=== PATIENT | male | born 1945 | race Caucasian/White ===

== ENCOUNTER → 2016-06-22 | Outpatient (CLI) | payer OTHER, MEDICARE ==
[~2016-06-22] MED LIST: AMLO5TAB2 PO; ASPI325T4 PO; ASPI81TA2 PO; ATOR40TA59 PO; CELE200C PO; CLOP75TA27 PO; FERR-26 PO; HYDR50TA6 PO; LOSA100T6 PO; OXYC-244 PO
[2016-06-22 09:05] LABS: BASO % 1 % (0-3); EOS % 2 % (0-3); HEMATOCRIT 44.2 % (39.0-53.0); HEMOGLOBIN 15.3 g/dL (13.0-17.5); LYMPH # 1.7 x10^3/uL (1.0-4.8); LYMPH % 28 % (24-48); MEAN CORPUSCULAR HEMOGLOBIN 32 pg (25-35); MEAN CORPUSCULAR HGB CONC 35 g/dL (31-37); MEAN CORPUSCULAR VOLUME 93 fL (79-100); MONO % 11 % (0-9); NEUT % 58 % (31-73); PLATELET COUNT 244 x10^3/uL (140-400); RED BLOOD COUNT 4.74 x10^6/uL (4.30-5.70); RED CELL DISTRIBUTION WIDTH 13.3 % (11.5-14.5); WHITE BLOOD COUNT 5.8 x10^3/uL (4.0-11.0)
[2016-06-22 09:07] LABS: BILIRUBIN,URINE NEGATIVE (NEG); GLUCOSE,URINE NEGATIVE (NEG); NITRITE,URINE NEGATIVE (NEG); PROTEIN,URINE NEGATIVE (NEG-TRACE)
[2016-06-22 09:14] LABS: INR 1.1 (0.8-1.1); PROTHROMBIN TIME PATIENT 13.4 SEC (11.7-14.0)
[2016-06-22 09:17] LABS: BACTERIA,URINE FEW /HPF (0-FEW); RBC,URINE 0 /HPF (0-2); SQUAMOUS EPITHELIAL CELL,UR FEW /LPF
[2016-06-22 09:21] LABS: ALBUMIN 3.8 g/dL (3.4-5.0); CALCIUM 9.2 mg/dL (8.5-10.1); CREATININE 0.9 mg/dL (0.7-1.3); GFR 82.9; POTASSIUM 4.3 mmol/L (3.5-5.1)
--- NOTE | 2016-06-22 11:48 | EKG ---
[facility] [address] [place] [address] Test Date: 2016-06-22 Test Time: 11:42:47 Pat Name: BRIGITTE Department: Room: Gender: Training And Development Head: : 1945 Requested By: DARÍO AMR Order Number: [id number] Reading MD: Raheem Garnett Measurements Intervals [place] Rate: 56 P: 25 ND: 192 QRS: 11 QRSD: 80 T: 39 QT: 392 QTc: 381 Interpretive Statements SINUS RHYTHM Electronically Signed On 06-23-2016 10:45:01 CDT by Raheem Garnett
--- NOTE | 2016-06-22 15:21 | RAD ---
EXAM: CHEST 2 VIEWS History: Preop knee replacement COMPARISON: 06/29/2009 TECHNIQUE: PA and lateral chest radiographs FINDINGS: The cardiomediastinal silhouette is within normal limits. The lungs are clear bilaterally. The costophrenic sulci are clear and well demarcated bilaterally. IMPRESSION: No radiographic evidence of an acute cardiopulmonary abnormality.
== END | disposition home or self-care (01) ==
LOC: SURGPAT 12:23
PROVIDERS: ATTEND Orthopaedic Surgery
DX: Z01.818 Encounter for other preprocedural examination (principal); I10 Essential (primary) hypertension
CPT/HCPCS: 36415; 71020; 80048; 81001; 82040; 85027; 85610; 85651; 85730; 87641; 93005

== ENCOUNTER → 2016-06-24 | Outpatient (CLI) | payer OTHER, MEDICARE ==
[~2016-06-24] MED LIST changes: -ASPI325T4 PO; -OXYC-244 PO
--- NOTE | 2016-06-24 17:41 | KCIC ---
PROCEDURE Right lower extremity venous duplex study 06/24/2016 HISTORY Right leg swelling. Palpable lump in medial right calf. TECHNIQUE Using a combination of real-time ultrasound imaging and color flow and pulse Doppler imaging techniques along with graded compression and augmentation, duplex evaluation of the major deep venous structures of the right lower extremity was performed. Multiple images were obtained. FINDINGS There is no sonographic evidence of deep venous thrombosis involving the visualized deep venous structures of the right lower extremity. A 3.1 centimeter prominent likely reactive lymph node is seen within the right inguinal region. Edema is seen within soft tissues of the medial right calf. A varicose vein in is seen in this region which is patent. No superficial venous thrombosis is noted. IMPRESSION There is no sonographic evidence of deep venous thrombosis involving visualized deep venous structures of the right lower extremity. A varicose vein is seen within the medial distal right calf which is patent. This appears to correspond to the patient's palpable abnormality. Electronically signed by: Hermann Hamilton MD (June 24, 2016 17:39:53)
== END | disposition home or self-care (01) ==
LOC: KCIC US 15:19
PROVIDERS: ATTEND Orthopaedic Surgery
DX: I82.4Z1 Acute embolism and thrombosis of unspecified deep veins of right distal lower extremity (principal); R22.41 Localized swelling, mass and lump, right lower limb
CPT/HCPCS: 93971

== ENCOUNTER 2016-07-14 05:44 | Inpatient (IN) | payer OTHER, MEDICARE ==
--- NOTE | 2016-07-13 09:35 | PDOC1 ---
History and Physical Date of Admission Date of Admission DATE: 07/14/16 Identification/Chief Complaint Chief Complaint right knee osteoarthritis pain Problems: Source Source: Chart review History of Present Illness History of Present Illness is a 71 year old male patient with right knee pain. Initially, he was scheduled for a right total knee replacement on 08/20/2015 but was cancelled since he suffered a stroke on 06/23/2015. He is here today to discuss having the surgery rescheduled but he has some questions about when he should schedule. He has some family functions that he would like to attend in June but he would like to schedule as soon as possible since he is having his sleep disrupted every evening due to pain with the right leg. He states he has been taking ibuprofen at night for the last several months to help with his symptoms during sleep. He was treated at for the stroke. He was told he has clotted off cerebral arteries posteriorly, to the cerebellum. He is on Plavix and aspirin only for treatment. He no longer sees any specialists, and Bernard Burrell his primary care is to continue the Plavix and aspirin. He occasionally gets some dizziness symptoms secondary to the stroke, and has a little bit of generalized fatigue/weakness after the stroke but denies ever having a fall. He has also lost 63 pounds in an effort to improve his health. Past Medical History Cardiovascular: HTN GI: GERD Past Surgical History Past Surgical History: Total knee replacement (left - 2007), Other (right shoulder scope with RCR and BT - 2012) Family History Family History: Cancer, Heart Disease Social History Smoke: No (previous use of chewing tobacco) ALCOHOL: occassional Drugs: None Current Medications Current Medications Active Scripts Active Reported Ferrous Sulfate 325 Mg Tablet 325 Mg PO DAILY Celebrex (Celecoxib) 200 Mg Capsule 1 Cap PO DAILY Plavix (Clopidogrel Bisulfate) 75 Mg Tablet 75 Mg PO DAILY Amlodipine Besylate 5 Mg Tablet 5 Mg PO DAILY Atorvastatin Calcium 40 Mg Tablet 40 Mg PO DAILY Losartan Potassium 100 Mg Tablet 100 Mg PO DAILY Hydrochlorothiazide Tablet (Hydrochlorothiazide) 50 Mg Tablet 12.5 Mg PO DAILY Aspirin 81 Mg Tab.chew 81 Mg PO DAILY Allergies Allergies: Coded Allergies: cetirizine (Verified Allergy, Intermediate, 06/22/16) admitted to hospital w/ abnormal labs-made him very sick cephalexin (Verified Adverse Reaction, Intermediate, Nausea and Vomiting, 06/22/16) Physical Exam General: Alert, Oriented X3, Cooperative, No acute distress HEENT: Atraumatic, EOMI Lungs: Normal air movement Heart: RRR Abdomen: Soft Extremities: No clubbing, No cyanosis, Normal pulses, Other (The right knee shows his mildly antalgic gait. There is varus alignment. No masses. No detectable effusion. Tenderness on the joint lines. Range of motion is 5-115 degrees. There is crepitus with range of motion, and pain at the extremes of motion. The knee is stable to varus and valgus stress without subluxation or laxity. Muscle strength is normal (5/5) for quadriceps and hamstrings, and muscle tone is normal. The skin is normal with no scars, rashes, lesions or ulcers. Light touch sensation is intact. No edema and no varicosities. Dorsalis pedis pulse is intact and capillary refill is normal. The left knee shows normal alignment, no masses and no effusion. No tenderness to palpation. Range of motion is 0-120 degrees, with typical total knee crepitus but no pain at the extremes of motion. The knee is stable to varus and valgus stress without subluxation or laxity. Muscle strength is normal (5/5) for quadriceps and hamstrings, and muscle tone is normal. The extensor mechanism is intact. The skin shows a well-healed midline scar from total knee arthroplasty. No drainage lesions or ulcers. Light touch sensation is intact. No edema and no varicosities. Dorsalis pedis pulse is intact and capillary refill is normal.) Skin: No rashes, No breakdown, No significant lesion Neuro: Normal speech, Sensation intact Psych/Mental Status: Mental status NL, Mood NL VTE Prophylaxis Ordered VTE Prophylaxis Devices: Yes VTE Pharmacological Prophylaxi: Yes Assessment/Plan Assessment/Plan Right knee osteoarthritis The patient and Dr. Engel talked about the risks and benefits of proceeding with total knee arthroplasty. He is slightly higher risk for complications such as falls, and slightly higher risk for complications due to obesity. He is down to 294 pounds, and when I last saw him he was 352 pounds. I encouraged him to continue weight loss. We will have him do some preoperative physical therapy for strengthening and balance exercises to help prevent the risk of falls perioperatively. His prior stroke also put some slightly higher risk, and we would like to hold his Plavix and aspirin for 24-48 hours if that is okay with Dr. Burrell. I would prefer to use tranexamic acid, but we can discuss those risks with anesthesia and may want to hold that for his surgery. We discussed the potential risks of infection, neurovascular injury, bleeding, blood clots, need for revision surgery, or other potential surgical or anesthetic complications. We can schedule at a mutually convenient date, tentatively July 14. HERO LI Jul 13, 2016 09:35
[~2016-07-14] VITALS: Ht 177.8 cm; Wt 134.7 kg
[2016-07-14] VITALS (9 sets, daily range): BP systolic 99–118; BP diastolic 57–70
[~2016-07-14 05:44] MED LIST changes: +ASPI-630 PO; -ASPI81TA2 PO; -CLOP75TA27 PO; +CLOP75TA57 PO
[2016-07-14] MEDS ORDERED: CELECOXIB 200 MG CAPSULE. PO PRN (06:00)
[2016-07-14] MEDS ORDERED: HYDROcodone/APAP 7.5/325MG 1 TAB TABLET PO PRN ×2 (06:00→10:15)
[2016-07-14] MEDS ORDERED: MORPHINE SULFATE 5 MG, KETOROLAC TROMETHAMINE 30 MG, ROPIVacaine 0.5% PF 60 ML, EPINEPH... INT ART ONE ×5 (06:00)
[2016-07-14] MEDS ORDERED: CLINDAMYCIN 900MG PREMIX 50 ML IV PRN (06:00)
[2016-07-14] MEDS ORDERED: VANCOMYCIN 1 GM VIAL. ONE (06:32)
[2016-07-14] MEDS ORDERED: TOBRAMYCIN POWDER 1.2 GM VIAL. ONE (06:32)
[2016-07-14] MEDS ORDERED: IV RINGERS,LACTATED 1000ML 1,000 ML IV SCH (07:00)
[2016-07-14] MEDS ORDERED: ONDANSETRON PF 4 MG/2 ML VIAL. IV PRN (07:00)
[2016-07-14] MEDS ORDERED: LIDOCAINE 1% 1 ML SYRINGE. ID PRN (07:00)
[2016-07-14] MEDS ORDERED: PROCHLORPERAZINE 10 MG/2 ML VIAL. IV PRN ×2 (07:00→10:15)
[2016-07-14] MEDS ORDERED: fentaNYL PF VIAL 100 MCG/2 ML VIAL IV PRN ×3 (07:00→10:15)
[2016-07-14] MEDS ORDERED: fentaNYL PF VIAL 250 MCG/5 ML VIAL ONE (07:04)
[2016-07-14] MEDS ORDERED: ePHEDrine PF IN SALINE 50 MG/5 ML DISP.SYRIN IV ONE (07:29)
[2016-07-14] MEDS ORDERED: SUCCINYLCHOLINE 200 MG/10 ML VIAL. ONE (07:59)
[2016-07-14] MEDS ORDERED: GLYCOPYRROLATE 1 MG/5 ML VIAL. ONE (08:00)
[2016-07-14] MEDS ORDERED: LIDOCAINE 2% PF Vial for OR 5 ML VIAL. ONE (08:00)
[2016-07-14] MEDS ORDERED: PROPOFOL 20 ML IV ONE (08:00)
[2016-07-14] MEDS ORDERED: TRANEXAMIC ACID 1,000 MG in IV NS 50ML -- 1ST BAG INJ ONE (08:00)
[2016-07-14] MEDS ORDERED: ONDANSETRON PF 4 MG/2 ML VIAL. ONE (08:01)
[2016-07-14] MEDS ORDERED: DEXAMETHASONE SOD PHOS 20 MG/5 ML VIAL. ONE (08:01)
[2016-07-14] MEDS ORDERED: PHENYLEPHRINE 10 MG/ML VIAL. ONE (08:38)
[2016-07-14] MEDS ORDERED: TRANEXAMIC ACID 1,000 MG in IV NS 50ML -- 2ND BAG INJ ONE (09:00)
[2016-07-14] MEDS ORDERED: SEVOFLURANE > 120 MINUTES. IH ONE (09:34)
--- NOTE | 2016-07-14 09:45 | PDOC4 ---
Operative Note Operative Note Date of Procedure: July 14, 2016 Pre-Op Diagnosis: Osteoarthritis right knee Post-Op Diagnosis: Osteoarthritis right knee Procedure: right total knee arthroplasty Surgeon: Darío Engel MD Dipper Machine Operator: Valarie Gottlieb PA-C Anesthesia: General EBL: 200 mL Specimens Obtained: right knee bone and soft tissue Complications: none Implant Company: [employer] Drains: Hemovac plus pain catheter Tourniquet time: 67 Minutes Tourniquet Pressure: 350 mm Hg Indications for Procedure: Arthritis pain unrelieved by nonoperative management. Findings: Severe osteoarthritis with bone on bone contact medially and at the patellofemoral joint Implants used: Size 5 right bicruciate stabilized Journey II BCS cobalt chrome femoral component, size 6 right Journey nonporous tibial baseplate, size 5-6 21 mm right Journey II BCS XLPE constrained articular insert, 38 mm oval Tiara II resurfacing patellar component Procedure in Detail: The patient was identified in the preoperative holding area, and the correct right extremity was marked by me. The patient was taken to the operating room where the patient was anesthetized by the Department of Anesthesia. Preoperative antibiotics were given intravenously. No tranexamic acid was given prior to surgery. A "time-out" procedure was performed. The patient was positioned supine on the operative table with a tourniquet on the upper thigh. The limb was thoroughly prepped and draped in sterile fashion. An impervious stockinet and adhesive drape were used such that the skin was entirely covered. An Catalan leg lara was used. The operating team wore personal exhaust-ventilated hoods. The tourniquet was inflated to 350 mm Hg. A midline skin incision was made with a scalpel using the patella and tibial tubercle as landmarks. Electrocautery was used for hemostasis. My learning support assistant used rake retractors. A medial parapatellar arthrotomy incision was used with extension into the distal quadriceps tendon. The patella was retracted laterally and Hohmann retractors were now used by my learning support assistant. Excess synovium, the menisci, and the cruciate ligaments were resected sharply. The patella was assessed and excess synovium and osteophytes around the patellar articulation were removed. The patella was measured with a caliper, cut freehand with a saw using caliper measurements, sized, and then drilled for an oval three-pegged patella component. Periarticular injection was used in the suprapatellar pouch and distal quadriceps muscle. Whitesides's line was assessed on the femur. An intra-medullary 5 degree cutting guide was pinned to the femur, and a distal femoral cut was made with an oscillating saw. An additional 4 mm resection was used due to the deep femoral sulcus, and deficient femoral condyle.My learning support assistant held Hohmann retractors and an [employer] retractor to protect the medial and lateral collateral ligaments, the patellar tendon, the skin and the other soft tissues. An anterior referencing guide was applied with external rotation of 3 to match Whitesides line. A 5-in-1 Journey II cutting guide was then applied and pinned to the femur. The posterior, anterior, and all chamfer cuts were made with the oscillating saw. An extramedullary guide was pinned to the tibia and rotational alignment and the planned resection thickness assessed. An external alignment stephane was used to verify the planned cut in the varus-valgus plane and regarding posterior slope referencing the tibial tubercle, the tibial shaft, the ankle joint, and the second metatarsal. The upper tibia was cut made with an oscillating saw. My learning support assistant held Hohmann retractors and a posterior cruciate ligament retractor to protect the medial and lateral collateral ligaments, the patellar tendon, the skin, the peroneal nerve and the other soft tissues. The upper tibia was sized with a trial baseplate. The posterior compartment was cleared of osteophytes and loose bodies, and posterior capsule released. [place]-articular injection was used in the posterior compartment. The box cut for a posterior stabilized component was made. A preliminary reduction was performed with a trial femur, trial tibial baseplate and trial polyethylene. Soft-tissue balancing was now performed, and extension and rotation of the alignments was checked using a guide stephane in the tibial trial and a guide pin in the femur. A medial release was required, using a 10 blade scalpel, and a [place] elevator to elevate the medial structures from the upper medial tibia. The stability was assessed using different thicknesses of tibial articular surface to find satisfactory stability and good range of motion. The rotation of the tibial component was marked on the upper tibia. Final trial reduction was now performed verifying patella tracking and tibiofemoral stability and alignment. The tibia preparation was completed with a drill, saw, and fin punch at the previously noted rotation. The final implants were verified and opened. Outer gloves were changed by the operating team. The bone cuts were washed thoroughly with the Nehemias InterPulse device and dried. Two packages of Palacos bone cement were mixed in powdered form with 1 gm of Vancomycin and 1.2 g tobramycin, then vacuum-mixed with the monomer, and placed into a cement gun. The cut surfaces of the bone were thoroughly dried with [place]el[place]-tip suction and with laparotomy sponges for cement interdigitation. The final components were cemented into place. The knee was kept at full extension while the cement hardened, and excess cement was removed. Tranexamic acid 1 g was given intravenously for additional intraoperative hemostasis. A final periarticular injection was used for pain relief. The tourniquet was released, and electrocautery was used for hemostasis. A final check of [id number] and stability was made, and the polyethylene implant final size was chosen. The polyethylene implant was secured to the tibial baseplate, and the knee was reduced a final time. Thorough irrigation was used. Hemovac and pain catheter were used.The arthrotomy was closed with interrupted [id number]-toiml #1 PDS suture. The arthrotomy incision was then run with #1 STRATAFIX Symmetric PDS Plus Knotless suture. The subcutaneous tissues were closed with #2-0 Vicryl by my learning support assistant. The skin was reapproximated with STRATAFIX Spiral MONOCRYL Plus Knotless suture by my learning support assistant. The skin incision was then covered and reinforced with Dermabond Prineo mesh skin closure dressing by my learning support assistant. A bulky sterile gauze dressing was applied. Needle and sponge counts were correct. DARÍO ENGEL MD Jul 14, 2016 09:45
[2016-07-14] MEDS: MORPHINE SULFATE 2 MG/ML DISP.SYRIN. IV PRN ×2 (10:13→10:33)
[2016-07-14] MEDS ORDERED: MORPHINE SULFATE 4 MG/ML DISP.SYRIN. IV PRN ×2 (10:15)
[2016-07-14] MEDS ORDERED: CALCIUM CARBONATE 500 MG TAB.CHEW PO PRN (10:15)
[2016-07-14] MEDS ORDERED: 0.9 % SODIUM CHLORIDE 10 ML DISP.SYRIN. IV PRN (10:15)
[2016-07-14] MEDS ORDERED: ACETAMINOPHEN 325 MG TABLET. PO PRN (10:15)
[2016-07-14] MEDS ORDERED: MORPHINE SULFATE 2 MG/ML DISP.SYRIN. IV PRN (10:15)
[2016-07-14] MEDS ORDERED: ZOLPIDEM 5 MG TABLET. PO PRN (10:15)
[2016-07-14] MEDS ORDERED: DEXTROSE 50% 25 GM / 50ML DISP.SYRIN. IV PRN (10:15)
[2016-07-14] MEDS ORDERED: METOCLOPRAMIDE HCL 10 MG/2 ML VIAL. IV PRN (10:15)
[2016-07-14] MEDS ORDERED: oxyCODONE/APAP 5/325 1 TAB TABLET PO PRN (10:15)
[2016-07-14] MEDS ORDERED: MORPHINE SULFATE 10 MG/ML VIAL. IV PRN (10:15)
[2016-07-14] MEDS ORDERED: PROCHLORPERAZINE 5 MG TABLET. PO PRN (10:15)
[2016-07-14] MEDS ORDERED: traMADol 50 MG TABLET PO PRN ×2 (10:15)
[2016-07-14] MEDS: fentaNYL PF VIAL 100 MCG/2 ML VIAL IV PRN ×2 (10:20→10:33)
--- NOTE | 2016-07-14 10:27 | ACF ---
Admission Forms Criteria MUSCULOSKELETAL DISEASE GRG Clinical Indications for Admission to Inpatient Care (Place 'X' for any and all applicable criteria): Hospital admission is needed for appropriate care of the patient because of 1 or more of the following: [ ]I. Fracture, dislocation, or other musculoskeletal injury requiring inpatient care(medical) as indicated by 1 or more of the following(4)(5)(6)(7) [ ]a) Vertebral fracture requiring observation for instability or neurologic compromise (8) [ ]b) Compartment syndrome (proven or cannot be ruled out during observation level of care) (9) [ ]c) Limb-threatening injury [ ]d) Major injury requiring inpatient stabilization such as traction initiation or external fixation before internal fixation or closure of complex or open fracture [ ]e) Major injury requiring inpatient treatment after emergency or observation level care (as appropriate) [ ]f) Severe pain requiring acute inpatient management [ ]g) Injury with suspicion of abuse or neglect (eg., child, dependent elderly) [ ]II. Newly diagnosed or suspected bone, joint, or orthopedic device infection (e.g., osteomyelitis, septic arthritis) needing 1 or more of the following(1)(2)(3) [ ]a) IV antibiotics that cannot be initiated in other than inpatient setting (e.g., patient too unstable or home infusion not available) [ ]b) Device removal or replacement [ ]c) Bone or soft tissue debridement [ ]d) Joint drainage (drain placement or repetitive aspirations) [ ]III. Severe rheumatologic disease (e.g., systemic lupus erythematosus, rheumatoid arthritis) with complications or comorbidities (Also use Optimal Recovery Care Criteria or General Recovery Criteria as appropriate on the basis of predominant condition), including 1 or more of the following( 10)(11)(12)(13) [ ]a) Severe infection (e.g., WATER PROJECT ENGINEER infection, sepsis) (14) [ ]b) Respiratory complications, including 1 or more of the following : [ ]i) Pleural effusion with respiratory compromise [ ]ii) Pulmonary hypertension with congestive failure [ ]iii) Respiratory failure [ ]iv) Pulmonary hemorrhage (15) [ ]c) Hematologic disease, including 1 or more of the following: [ ]i) Coagulopathy with bleeding [ ]ii) Thrombosis with hypercoagulable state [ ]iii) Thrombotic thrombocytopenic purpura [ ]d) Cerebritis with seizures, psychosis, or other severe abnormalities [ ]e) Vertebral destruction with monitoring needed for cervical myelopathy& possible respiratory compromise [ ]f) Exacerbation that requires inpatient treatment (e.g., intravenous immunosuppression) (16) [ ]g) Acute renal failure [ ]h) Cerebritis with seizures, psychosis, Altered mental status, or other neurologic abnormalities [ ]i) Pericardial effusion with tamponade [ ]j) Vertebral destruction, with monitoring needed for cervical myelopathy and possible respiratory compromise [ ]IV. Severe vasculitis with complications or comorbidities (Also use Optimal Recovery Care Criteria General Recovery Criteria as appropriate on the basis of predominant condition), including 1 or more of the following(11)(12)(17)(18)(19)(20) [ ]a) Exacerbation that requires inpatient treatment (e.g., intravenous immunosuppression) (19)(21) [ ]b) Pulmonary hemorrhage (15) [ ]c) WATER PROJECT ENGINEER vasculitis with seizures, psychosis, Altered mental status that is severe or persistent, or other severe abnormalities (22) [ ]d) Cerebral infarction [ ]e) Gastrointestinal ischemia [ ]f) Gangrene or threatened amputation [ ]g) Renal failure (16) [ ]h) Other significant complications of vasculitis ( eg., tissue or organ ischemia, organ dysfunction ) [ ]V. Severe myopathy as indicated by 1 or more of the following (28)(29) [ ]a) New onset of airway compromise or inability to swallow [ ]b) Respiratory deterioration with observation needed for impending respiratory failure [ ]c) Exacerbation that requires inpatient treatment (e.g., intravenous immunosuppression) [ ]. Severe crystal gout (arthropathy) indicated by 1 or more of the following (23)(24) [ ]a) Severe pain requiring acute inpatient management [ ]b) Exacerbation that requires inpatient treatment (e.g., intravenous treatment) [ ]VII.Rhabdomyolysis and 1 or more of the following (25)(26)(27) [ ]a) Acute renal failure [ ]b) Need for intravenous hydration after emergency or observation level care (as appropriate) [ ]c) Inability to maintain oral hydration [ ]d) Change in mental status [ ]e) Electrolyte abnormality that remains after emergency or observation level care (as appropriate) [ ]VIII Post amputation complication, as indicated by ANY ONE of the following [ ]a) Infection [ ]b) Dehiscence [ ]c) Myodesis failure [X]IX. Severe pain requiring acute inpatient management due to musculoskeletal condition [ ]X. Musculoskeletal Disease and ALL of the following: [ ]a) Symptom or finding for which emergency and observation care have failed or are not considered appropriate (Use General Criteria: Observation Care as appropriate) [ ]b) Presence of ANY ONE of the following [ ]i) A General Admission Criteria [ ]ii) A Pediatric General Admission Criteria The original [facility] [employer] content created by [facility] [employer] has been revised. The portions of the content which have been revised are identified through the use of italic text or in bold, and [facility] has neither reviewed nor approved the modified material. All other unmodified content is copyright [facility] [employer]. Please see references footnoted in the original [facility] [employer] edition 2016 Admission Criteria Met?: Yes SHIRA FIGUEROA Jul 14, 2016 10:27
[2016-07-14] MEDS: HYDROmorphone 2 MG/ML VIAL IV PRN ×4 (10:41→11:16)
--- NOTE | 2016-07-14 10:57 | RAD ---
Indication total knee replacement. Protocol study. AP and lateral views of the right knee were obtained. There is a total knee replacement. No complication is seen. Surgical drain is noted.
[2016-07-14] MEDS: CLINDAMYCIN 600MG PREMIX 50 ML IV SCH ×2 (13:14→19:29)
[2016-07-14] MEDS: hydroCHLOROthiazide 12.5 MG CAPSULE PO SCH (14:00)
[2016-07-14] MEDS ORDERED: CLOPIDOGREL BISULFATE 75 MG TABLET PO SCH (14:00)
[2016-07-14] MEDS: LOSARTAN POTASSIUM 50 MG TABLET. PO SCH (14:00)
[2016-07-14] MEDS: amLODIPine BESYLATE 5 MG TABLET PO SCH (14:00)
[2016-07-14] MEDS: FERROUS SULFATE 325 MG TABLET. PO SCH (17:16)
[2016-07-14] MEDS: IV DEXTROSE 5 %-0.45 % NACL 1,000 ML IV SCH (17:17)
[2016-07-14] MEDS: oxyCODONE/APAP 7.5/325 1 TAB TABLET PO PRN ×2 (19:09→23:27)
[2016-07-14] MEDS: CELECOXIB 200 MG CAPSULE. PO SCH (20:38)
[2016-07-14] MEDS: ASPIRIN ENTERIC COATED 325 MG TABLET.DR. PO SCH (20:38)
[2016-07-15] MEDS: CLINDAMYCIN 600MG PREMIX 50 ML IV SCH (01:42)
[2016-07-15 02:19] VITALS: BP 95/45
[2016-07-15] MEDS: IV DEXTROSE 5 %-0.45 % NACL 1,000 ML IV SCH ×3 (05:02→16:43)
[2016-07-15] MEDS: oxyCODONE/APAP 7.5/325 1 TAB TABLET PO PRN ×5 (05:10→20:29)
[2016-07-15] MEDS ORDERED: MAGNESIUM HYDROXIDE 2,400 MG/30 ML ORAL.SUSP. PO PRN (06:00)
[2016-07-15 06:17] LABS: HEMATOCRIT 31.9 % (39.0-53.0); HEMOGLOBIN 10.9 g/dL (13.0-17.5)
[2016-07-15 06:25] VITALS: BP 104/64
[2016-07-15] MEDS: FERROUS SULFATE 325 MG TABLET. PO SCH ×2 (08:14→16:56)
[2016-07-15] MEDS: CELECOXIB 200 MG CAPSULE. PO SCH ×2 (08:15→20:29)
[2016-07-15] MEDS: ASPIRIN ENTERIC COATED 325 MG TABLET.DR. PO SCH ×2 (08:16→20:29)
[2016-07-15] MEDS: SENNOSIDES/DOCUSATE 8.6/50MG TABLET. PO SCH (08:16)
[2016-07-15] MEDS: LOSARTAN POTASSIUM 50 MG TABLET. PO SCH (09:00)
[2016-07-15] MEDS: amLODIPine BESYLATE 5 MG TABLET PO SCH (09:00)
[2016-07-15] MEDS: hydroCHLOROthiazide 12.5 MG CAPSULE PO SCH (09:00)
[2016-07-15] MEDS: MULTIVITAMIN with MINERAL TABLET. PO SCH (09:00)
--- NOTE | 2016-07-15 12:08 | PDOC ---
PROGRESS NOTES Subjective Subjective No complaints. Pain controlled. Objective Vital Signs Vital Signs Date Time Temp Pulse Resp B/P (MAP) Pulse Ox O2 Delivery O2 Flow Rate FiO2 07/15/16 11:38 Room Air 07/15/16 06:25 98.1 84 20 104/64 (77) 93 2.0 98.1 Physical Exam Dressing dry. Pain catheter and Hemovac in place. Good dorsiflexion and plantarflexion of the foot with no evidence of neurovascular injury or DVT. Calves are soft and non-tender. Negative Homans. Peripheral pulses and light touch sensation intact. Labs Laboratory Tests Test 07/15/16 06:05 Hemoglobin 10.9 g/dL (13.0-17.5) Hematocrit 31.9 % (39.0-53.0) Mean Corpuscular Hemoglobin Concent 34 g/dL (31-37) Laboratory Tests Test 07/15/16 06:05 Hemoglobin 10.9 g/dL (13.0-17.5) Hematocrit 31.9 % (39.0-53.0) Mean Corpuscular Hemoglobin Concent 34 g/dL (31-37) Imaging Postoperative x-rays reviewed by me, showing satisfactory total knee replacement , with no apparent complications. Assessment Assessment POD #1 TKA Problems: Plan Plan of Care Continue POC including DVT prophylaxis and physical therapy. Per patient, Dr. Burrell told him not to restart the Plavix after surgery as he has already been on it for one year. HERO LI Jul 15, 2016 12:08
[2016-07-15] MEDS ORDERED: BISACODYL 10 MG SUPP.RECT. PR PRN (16:00)
[2016-07-15 18:10] VITALS: BP 121/70
[2016-07-15] MEDS: ATORVASTATIN CALCIUM 40 MG TABLET. PO SCH (20:29)
[2016-07-15 23:00] VITALS: BP 109/74
[2016-07-16] MEDS: oxyCODONE/APAP 7.5/325 1 TAB TABLET PO PRN ×4 (00:45→21:39)
[2016-07-16 06:10] VITALS: BP 118/70
[2016-07-16 08:09] LABS: HEMATOCRIT 30.9 % (39.0-53.0); HEMOGLOBIN 10.4 g/dL (13.0-17.5)
[2016-07-16] MEDS: CELECOXIB 200 MG CAPSULE. PO SCH ×2 (08:14→21:38)
[2016-07-16] MEDS: MULTIVITAMIN with MINERAL TABLET. PO SCH (08:14)
[2016-07-16] MEDS: FERROUS SULFATE 325 MG TABLET. PO SCH ×2 (08:14→16:55)
[2016-07-16] MEDS: SENNOSIDES/DOCUSATE 8.6/50MG TABLET. PO SCH (08:14)
[2016-07-16] MEDS: ASPIRIN ENTERIC COATED 325 MG TABLET.DR. PO SCH ×2 (08:14→21:38)
[2016-07-16] MEDS: hydroCHLOROthiazide 12.5 MG CAPSULE PO SCH (08:14)
[2016-07-16 11:26] VITALS: BP 136/78
[2016-07-16] MEDS: amLODIPine BESYLATE 5 MG TABLET PO SCH (11:48)
[2016-07-16] MEDS: LOSARTAN POTASSIUM 50 MG TABLET. PO SCH (11:49)
--- NOTE | 2016-07-16 13:02 | PDOC ---
PROGRESS NOTES Subjective Subjective Doing well. Only reports mild pain increase from yesterday. Objective Vital Signs Vital Signs Date Time Temp Pulse Resp B/P (MAP) Pulse Ox O2 Delivery O2 Flow Rate FiO2 07/16/16 11:49 88 136/78 07/16/16 11:26 99.1 18 97 Room Air 99.1 07/15/16 06:25 2.0 Physical Exam Expected swelling. Pain catheter and drain have been removed. Incison with spotty drainage only onto Prineo. Calf soft and nontender. Negative homans sign. Good AROM ankle. Peripheral pulses and light touch sensation intact. Labs Laboratory Tests Test 07/15/16 06:05 07/16/16 07:15 Hemoglobin 10.9 g/dL (13.0-17.5) 10.4 g/dL (13.0-17.5) Hematocrit 31.9 % (39.0-53.0) 30.9 % (39.0-53.0) Mean Corpuscular Hemoglobin Concent 34 g/dL (31-37) 34 g/dL (31-37) Laboratory Tests Test 07/16/16 07:15 Hemoglobin 10.4 g/dL (13.0-17.5) Hematocrit 30.9 % (39.0-53.0) Mean Corpuscular Hemoglobin Concent 34 g/dL (31-37) Imaging X-rays independently reviewed by me and show satisfactory TKA alignment and no apparent complications. Assessment Assessment POD 2 TKA Problems: Plan Plan of Care Continue DVT prophylaxis and physical therapy. Planned discharge tomorrow. Office F/U in 10-14 days. DARÍO MAR MD Jul 16, 2016 13:02
--- NOTE | 2016-07-16 16:00 | PATHOLOGY ---
PATHOLOGY REPORT * * * * * * * * FINAL DIAGNOSIS: Segments of bone and soft tissue, right total knee arthroplasty: - Advanced degenerative arthritis. (JPM:; d/t: 07/16/16) REPORT ELECTRONICALLY SIGNED BY: Dilip Rich M.D. DATE/TIME: 07/16/2016 15:59 * * * * * * * * GROSS PATHOLOGY: Received in formalin labeled "Royal Diamond Pearson, right knee tissue," are multiple segments of bone, including tibial plateau, measuring 9.8 x 9.5 x 2.7 cm in aggregate dimensions admixed with soft tissue; meniscus is present. The specimen shows focal eburnation of the articular surfaces. Colorist Formulator sections of bone and soft tissue are submitted in cassette A1, following decalcification. (CAA; 07/15/2016) INITIAL CPT CODE(S): A; 02303, 47736 Professional services performed [place] [facility] [place] [address] Technical services performed by [facility] at [address] [place] [address] [address], [place] [address]. SPECIMEN(S) RECEIVED: A.Right knee tissue CLINICAL HISTORY: Right knee OA PATIENT: ROYAL Reese BRIGGS JR /AGE: 1 1945 (Age: 71) PATIENT #: [id number] ALT CASE #: SPECIMEN COLLECTION DATE: 07/14/2016 SPECIMEN RECEIVED DATE: 07/14/2016 [facility] - [address] [place] [address] - PHONE: [phone] * * * END OF REPORT * * *
[2016-07-16 17:25] VITALS: BP 113/72
[2016-07-16] MEDS: ATORVASTATIN CALCIUM 40 MG TABLET. PO SCH (21:00)
[2016-07-17] MEDS: HYDROcodone/APAP 10/325 1 TAB TABLET PO PRN ×3 (01:00→12:23)
[2016-07-17 05:41] LABS: HEMATOCRIT 26.7 % (39.0-53.0); HEMOGLOBIN 9.1 g/dL (13.0-17.5)
[2016-07-17 06:38] VITALS: BP 128/63
[2016-07-17] MEDS: FERROUS SULFATE 325 MG TABLET. PO SCH (07:48)
[2016-07-17] MEDS: SENNOSIDES/DOCUSATE 8.6/50MG TABLET. PO SCH (07:48)
[2016-07-17] MEDS: ASPIRIN ENTERIC COATED 325 MG TABLET.DR. PO SCH (07:48)
[2016-07-17] MEDS: CELECOXIB 200 MG CAPSULE. PO SCH (07:48)
[2016-07-17] MEDS: MULTIVITAMIN with MINERAL TABLET. PO SCH (07:49)
[2016-07-17] MEDS: amLODIPine BESYLATE 5 MG TABLET PO SCH (07:49)
[2016-07-17] MEDS: LOSARTAN POTASSIUM 50 MG TABLET. PO SCH (07:50)
[2016-07-17] MEDS: hydroCHLOROthiazide 12.5 MG CAPSULE PO SCH (07:50)
[2016-07-17 11:06] VITALS: BP 100/57
--- NOTE | 2016-07-17 13:33 | PDOC ---
PROGRESS NOTES Subjective Subjective Doing well. Planning for discharge later today after PT. Objective Vital Signs Vital Signs Date Time Temp Pulse Resp B/P (MAP) Pulse Ox O2 Delivery O2 Flow Rate FiO2 07/17/16 13:23 18 Room Air 07/17/16 11:06 98.1 73 100/57 (71) 98.1 07/17/16 06:38 97 07/15/16 06:25 2.0 Physical Exam Expected swelling. Prineo dressing intact and dry. Calf soft and nontender. Negative Homans. Good AROM ankle. Peripheral pulses and light touch sensation intact. Labs Laboratory Tests Test 07/16/16 07:15 07/17/16 05:05 Hemoglobin 10.4 g/dL (13.0-17.5) 9.1 g/dL (13.0-17.5) Hematocrit 30.9 % (39.0-53.0) 26.7 % (39.0-53.0) Mean Corpuscular Hemoglobin Concent 34 g/dL (31-37) 34 g/dL (31-37) Laboratory Tests Test 07/17/16 05:05 Hemoglobin 9.1 g/dL (13.0-17.5) Hematocrit 26.7 % (39.0-53.0) Mean Corpuscular Hemoglobin Concent 34 g/dL (31-37) Assessment Assessment POD 3 TKA Problems: Plan Plan of Care Discharge later today, to home. Continue DVT prophylaxis and physical therapy. F/U 10-14 days. HERO LI Jul 17, 2016 13:33
--- NOTE | 2016-07-17 13:37 | PDOC3 ---
Discharge Summary Visit Information Date of Admission: Jul 14, 2016 Date of Discharge: Jul 17, 2016 Admitting Diagnosis: right knee osteoarthritis Brief Hospital Course Allergies Allergies Coded Allergies Type Severity Reaction Last Updated Verified cetirizine Allergy Intermediate 07/14/16 Yes cephalexin Adverse Reaction Intermediate Nausea and Vomiting 07/14/16 Yes Vital Signs Vital Signs Date Time Temp Pulse Resp B/P (MAP) Pulse Ox O2 Delivery O2 Flow Rate FiO2 07/17/16 13:23 18 Room Air 07/17/16 11:06 98.1 73 100/57 (71) 98.1 07/17/16 06:38 97 Lab Results Laboratory Tests Test 07/16/16 07:15 07/17/16 05:05 Hemoglobin 10.4 g/dL (13.0-17.5) 9.1 g/dL (13.0-17.5) Hematocrit 30.9 % (39.0-53.0) 26.7 % (39.0-53.0) Mean Corpuscular Hemoglobin Concent 34 g/dL (31-37) 34 g/dL (31-37) Laboratory Tests Test 07/17/16 05:05 Hemoglobin 9.1 g/dL (13.0-17.5) Hematocrit 26.7 % (39.0-53.0) Mean Corpuscular Hemoglobin Concent 34 g/dL (31-37) Brief Hospital Course 71 year old male who presented with knee osteoarthritis, for elective total knee arthroplasty. The patient underwent total knee arthroplasty under general anesthesia the day of admission. Perioperative antibiotics and DVT prophylaxis were used. Postoperatively physical therapy and case management were consulted. The patient progressed and is stable for discharge. Discharge Information Condition at Discharge: Stable Follow Up: Weeks (2) Disposition/Orders: D/C to Home Scheduled Amlodipine Besylate (Amlodipine Besylate), 5 MG PO DAILY, (Reported) Aspirin (Aspirin), 81 MG PO DAILY, (Reported) Atorvastatin Calcium (Atorvastatin Calcium), 40 MG PO DAILY, (Reported) Celecoxib (Celebrex), 1 CAP PO DAILY, (Reported) Clopidogrel Bisulfate (Plavix), 75 MG PO DAILY, (Reported) Ferrous Sulfate (Ferrous Sulfate), 325 MG PO DAILY, (Reported) Hydrochlorothiazide (Hydrochlorothiazide Tablet), 12.5 MG PO DAILY, (Reported) Losartan Potassium (Losartan Potassium), 100 MG PO DAILY, (Reported) Patient Instructions Patient Instructions Patient Instructions Continue to WBAT with walker. Keep dressing dry and intact. F/U with [facility] in 10-14 days. Call for appointment. Physical therapy for TKA Continue DVT prophylaxis with aspirin 325mg twice daily. HERO LI Jul 17, 2016 13:37
[2016-07-17] MEDS ORDERED: ASPI325T8 PO (13:50)
[2016-07-17] MEDS ORDERED: FERR-26 PO (13:51)
[2016-07-17] MEDS ORDERED: OXYC-327 PO (13:57)
== END 2016-07-17 16:55 | disposition home health service (06) | DRG 470 ==
LOC: OPSVCIP 05:44 → 4 SOUTHEST 11:16
PROVIDERS: ADMIT Orthopaedic Surgery; ATTEND Orthopaedic Surgery
PROC: 0SRC0J9 Replacement of Right Knee Joint with Synthetic Substitute, Cemented, Open Approach (ICD-10-PCS; principal; 2016-07-14 07:10)
DX: M17.11 Unilateral primary osteoarthritis, right knee (principal); Z68.41 Body mass index [BMI] 40.0-44.9, adult; I10 Essential (primary) hypertension; Z96.652 Presence of left artificial knee joint; E66.9 Obesity, unspecified; K21.9 Gastro-esophageal reflux disease without esophagitis; Z79.02 Long term (current) use of antithrombotics/antiplatelets; Z79.82 Long term (current) use of aspirin; Z86.73 Personal history of transient ischemic attack (TIA), and cerebral infarction without residual deficits; Z88.1 Allergy status to other antibiotic agents; Z87.891 Personal history of nicotine dependence; Z88.8 Allergy status to other drugs, medicaments and biological substances; Z82.49 Family history of ischemic heart disease and other diseases of the circulatory system
CPT/HCPCS: 36415; 73560; 85014; 85018; 86850; 86900; 86901; 88305; 88311; C1713; J0171; J0330; J0780; J1100; J1170; J1885; J2270; J2405; J2704; J2795; J3010; J3260; J3370; J3490; J7030; J7120; 97116; 97150; 97530; 97535; C1769